=== PATIENT | female | born 2000 | race Two or more races ===

== ENCOUNTER 2024-04-25 23:57 | Emergency (ER) | payer OTHER ==
[~2024-04-25] VITALS: Ht 162.6 cm; Wt 63.6 kg
[2024-04-26 00:07] VITALS: TEMP 98.2
[2024-04-26 01:21] VITALS: BP 131/67; PULSE 72; RESP 18; O2SAT 100
[2024-04-26] MEDS ORDERED: TRAM50TA5 PO (03:04)
[2024-04-26] MEDS: TraMADol HCL 50 MG TABLET PO ONE (03:54)
== END 2024-04-26 03:58 | disposition home or self-care (01) ==
LOC: EMS 04-26
DX: S92.811A Other fracture of right foot, initial encounter for closed fracture (principal); X58.XXXA Exposure to other specified factors, initial encounter; Y93.02 Activity, running; Y92.89 Other specified places as the place of occurrence of the external cause; Y99.8 Other external cause status
CPT/HCPCS: 99283